=== PATIENT | male | born 1985 | race African-American/Black ===

== ENCOUNTER 2019-07-30 02:19 | Emergency (ER) | payer SELFPAY ==
--- NOTE | ~2019-07-30 | XR_ITS ---
EXAMINATION: XR chest 2V 07/30/2019 02:39 INDICATION: Shortness of breath. Right-sided chest pain. PROCEDURE: 2 view chest COMPARISON: No prior studies for comparison. FINDINGS: The lungs are clear. The cardiomediastinal silhouette is within normal limits. There are no pleural effusions. There is no pneumothorax suspected. IMPRESSION: 1: NO ACUTE CARDIOPULMONARY DISEASE. Reviewed, dictated and finalized at location A.
[2019-07-30 02:16] VITALS: BP 141/97; PULSE 90; RESP 24; TEMP 36.4; O2SAT 100
[2019-07-30 02:20] VITALS: PULSE 89; O2SAT 98
--- NOTE | 2019-07-30 02:23 | ECG_ITS ---
Measurements Intervals [place] Rate: 76 P: 50 IA: 150 QRS: 25 QRSD: 103 T: 0 QT: 360 QTc: 407 Interpretive Statements SINUS RHYTHM INCOMPLETE RIGHT BUNDLE BRANCH BLOCK ST ELEVATION IN ANT/LAT LEADS- PROBABLY EARLY REPOLARIZATION BORDERLINE T WAVE ABNORMALITY- INFERIOR LEADS BASELINE ARTIFACT- I, III, AVL, AVF BORDERLINE ECG Electronically Signed On 07-30-2019 7:10:44 CDT by Arden Pierce D.O.
[2019-07-30 02:42] LABS: Basophils Percent Auto 0.2 % (0.2-1.2); Eosinophils Absolute Auto 0.2 K/mm3 (0-0.3); Eosinophils Percent Auto 1.7 % (0-4.4); Hematocrit 44.5 % (42.0-52.0); Hemoglobin 15.1 g/dL (14.0-18.0); Immature Granulocyte Absolute 0.02 K/mm3 (0.00-0.031); Immature Granulocyte Percent A 0.2 % (0-0.5); Lymphocytes Absolute Auto 1.99 K/mm3 (0.9-3.2); Lymphocytes Percent Auto 22.4 % (18.3-44.2); Mean Corpuscular HGB Conc 33.9 g/dl (32-36); Mean Corpuscular Hemoglobin 30.1 pg (26-34); Mean Corpuscular Volume 88.8 fl (80-100); Mean Platelet Volume 9.8 fl (7.4-10.4); Monocytes Absolute Auto 0.6 K/mm3 (0.1-0.6); Neutrophils Absolute Auto 6.1 K/mm3 (1.3-6.7); Neutrophils Percent Auto 68.5 % (45.5-73.1); Platelet Count Result 454 k/mm3 (150-375); Red Blood Count 5.01 M/mm3 (4.6-6.20); Red Cell Distribution Width 12.5 % (11.5-14.5); White Blood Count 8.9 K/mm3 (4.5-10.0)
[2019-07-30 02:44] LABS: Blood Urea Nitrogen 8 mg/dL (9-20); Calcium 9.8 mg/dL (8.4-10.2); Carbon Dioxide 30 mmol/L (22-30); Chloride 101 mmol/L (98-107); Estimated CRCL calculation 100 ml/min; Estimated Glomerular Filt Rate > 60; Glucose 93 mg/dL (75-110); Potassium 3.5 mmol/L (3.4-5.0); Sodium 140 mmol/L (137-145)
--- NOTE | 2019-07-30 02:44 | ED.CHESTPAIN ---
HPI - Chest Pain General Chief Complaint: Chest Pain Stated Complaint: R CP Time Seen by Provider: 07/30/19 02:34 Source: patient and RN notes reviewed Mode of arrival: EMS Limitations: no limitations History of Present Illness HPI narrative: A 34 y/o male presents to the ED via EMS from work with intermittent, worsening, stabbing, rt sided CP since yesterday morning. He states that he woke up with rt sided CP, nausea, and SOB yesterday morning but that it resolved on its own. He reports that it returned again tonight around 7 PM while he was at work but that it resolved on its own again. He notes that at 1 AM this morning the pain came back more severe while he was at work, so he called EMS to be brought here to be evaluated. He also notes associated nausea and that talking and inspiration aggravates the pain. He denies any cough, vomiting, ABD pain, or back pain. MD complaint: chest pain Onset (ago): day(s) (yesterday) Timing of current episode: episodic Onset: awoke with symptoms and other (while at work) Pain location: right chest Quality: other (stabbing) Exacerbating factors: inspiration and other (talking) Associated symptoms: nausea and dyspnea Risk Factors Coronary artery disease risk factors: smoking history Related Data Allergies Allergy/AdvReac Type Severity Reaction Status Date / Time No Known Allergies Allergy Verified 07/30/19 02:21 Review of Systems Review of Systems: All systems reviewed & are unremarkable except as noted in HPI and below Cardiovascular: Cardiovascular: Reports chest pain (rt) Respiratory: Respiratory: Denies cough and Reports dyspnea Gastrointestinal: Gastrointestinal: Denies abdominal pain, Reports nausea and Denies vomiting Musculoskeletal: Musculoskeletal: Denies back pain PMFSH Past Medical History Medical History (Updated 07/30/19 @ 04:35 by Angelic Soni MD) Healthy adult male Surgical History Surgical History (Updated 07/30/19 @ 02:46 by Randall Gonzalez) No history of previous surgery Social History Social History (Updated 07/30/19 @ 02:47 by Randall Gonzalez) Smoking status: Current some day smoker Tobacco type: cigarettes Exam Const: General: cooperative, no acute distress and alert Nutritional Appearance: well nourished Orientation/consciousness: patient oriented x3 Limitations: no limitations HENMT: Mouth: Yes lip normal and Yes moist mucous membranes Chest: Chest palpation & inspection: tenderness rib (rt mid to lower) Resp: Effort & Inspection: normal respiratory effort and other (splinting with deep inspiration) Auscultation: clear to auscultation bilaterally Cardio: Rate: regular rate Rhythm: regular rhythm GI: GI Palp: Yes Soft to palpation and No Tenderness to palpation present (GI) Auscultation: normal bowel sounds Skin: General skin exam: normal color Neuro: General: patient oriented x3 Cognition (Neuro): normal cognition Speech: normal speech Extrem: General: normal to inspection, full ROM and no clubbing, cyanosis or edema Psych: Mental Status: mental status grossly normal Affect: normal affect Attitude: cooperative Course Course Emergency Course: Patient feeling better after Toradol. Still having some pain with inspiration, but significantly improved. D-dimer is negative and patient low risk for pulmonary embolism. No evidence of pneumothorax or pneumonia on chest x-ray. Patient with what appears to be pleurisy. Will treat with anti-inflammatories. Advised primary follow-up. Vital Signs Vital signs: Vital Signs Temperature 97.5 F L 07/30/19 02:16 Pulse Rate 90 07/30/19 02:16 Respiratory Rate 24 H 07/30/19 02:16 Blood Pressure 141/97 H 07/30/19 02:16 Pulse Oximetry 100 07/30/19 02:16 Temperature 97.5 F L 07/30/19 02:16 Pulse Rate 89 07/30/19 02:20 Respiratory Rate 24 H 07/30/19 02:16 Blood Pressure 141/97 H 07/30/19 02:16 Pulse Oximetry 98 07/30/19 02:20 MDM - Chest Pain Lab Data At
[2019-07-30 02:45] LABS: Prothrombin Time 12.6 Seconds (11.1-14.7)
[2019-07-30 02:46] LABS: Partial Thromboplastin Time 30.8 SECONDS (22.3-36.8)
[2019-07-30 02:56] LABS: Troponin I < 0.012 ng/mL (0.000-0.034)
[2019-07-30] MEDS: KETOROLAC 30 MG/ML VIAL (*BKC) IV PUSH (02:58)
[2019-07-30 04:08] LABS: D Dimer < 0.22 ug/mL (<0.48)
[2019-07-30 04:48] VITALS: BP 113/72; PULSE 62; RESP 18; O2SAT 97
== END 2019-07-30 04:50 | disposition home or self-care (01) ==
PROVIDERS: Emergency Provider Emergency Medicine; PCP Nurse Practitioner Family
DX: R09.1 Pleurisy (principal); F17.210 Nicotine dependence, cigarettes, uncomplicated; I45.10 Unspecified right bundle-branch block; R94.31 Abnormal electrocardiogram [ECG] [EKG]
CPT/HCPCS: 36415; 71046; 80048; 84484; 85025; 85380; 85610; 85730; 93005; 96374; 99284; J1885